=== PATIENT | female | born 1975 ===

== ENCOUNTER 2017-02-15 13:36 | Outpatient (CLI) | payer BC, OTHER | END 2017-02-15 13:37 | disposition home or self-care (01) | LOC: LABHHL 13:36 | PROVIDERS: ATTEND Surgery | DX: C50.911 Malignant neoplasm of unspecified site of right female breast (principal) | CPT/HCPCS: 88305; 88361 ==

== ENCOUNTER 2017-02-22 13:29 | Outpatient (CLI) | payer BC | END 2017-02-22 13:30 | disposition home or self-care (01) | LOC: LABHHL 13:29 | PROVIDERS: ATTEND Surgery | DX: N63.10 Unspecified lump in the right breast, unspecified quadrant (principal) | CPT/HCPCS: 88104; 88112; 88305 ==